=== PATIENT | female | born 1975 | race African-American/Black ===

== ENCOUNTER 2016-08-28 15:33 | Observation (INO) | payer OTHER ==
[~2016-08-28] VITALS: Ht 157.5 cm; Wt 113.5 kg
[~2016-08-28 15:33] MED LIST: ALBU6.7H INH; ASPI1TAB7 PO; BUTA1CAP5 PO; FIORIC PO; FLEX10TA PO; FLUC150T PO; METR500T10 PO; MICO200V PV; OMPR20CCR PO; OSEL75 PO; PRAV80 PO; PROP10TA6 PO; SUMA50 PO; SUMA5SPR
[2016-08-28 15:35] VITALS: BP 174/97; PULSE 78; RESP 18; TEMP 97.9; O2SAT 99
--- NOTE | 2016-08-28 16:17 | PD ---
HPI Chief Complaint: Chest Pain Time Seen by Provider: 16:17 Travel History International Travel<30 days: No Contact w/Intl Traveler<30days: No Traveled to known affect area: No History of Present Illness HPI 41-year-old female with history of hypertension, remote TIA, CVA, multiple blood clots, "some heart condition," migraine headaches, GERD, presents to the emergency department for evaluation of chest pain. Patient states it has been intermittently occurring over the last 3 days with associated dizziness. She states it feels as though the is spinning when it occurs. She has been nauseous with one episode of vomiting today. No episodes of diaphoresis. She has been increasingly short of breath with activity. Her industrial recruiter Dr. king advised that she come to the emergency department. PFSH Past Medical History Asthma: Yes Cancer: No Cardiovascular Problems: Yes High Cholesterol: Yes Cerebrovascular Accident: Yes Diabetes: No Diminished Hearing: No Endocrine: No Genitourinary: No Headaches: Yes Hepatitis: No Hiatal Hernia: No Immune Disorder: No Musculoskeletal: Yes (BACK PROBLEMS) Neurologic: Yes (TIA 2012, STROKE 2009, TIA 2005 & 2009; MIGRAINE HEADACHES ) Psychiatric: No Reproductive: Yes ( SEVERE VAGINAL BLEEDING) Respiratory: Yes Immunizations Current: Yes Migraines: Yes Thyroid Disease: Yes (HISTORY OF ) ?: Not : 4 Para: 4 Miscarriage: 0 : 0 Tubal Ligation: Yes (X 2 - STATES SHE BECAME PREG AFTER THE 1ST TUBAL) Past Surgical History Abdominal Surgery: Yes (CHOLECYSTECTOMY) AICD: No Cardiac Surgery: No Ear Surgery: No Endocrine Surgery: No Eye Surgery: No Genitourinary Surgery: No Gynecologic Surgery: Yes (TUBAL LIGATION X 2 ) Hysterectomy: Yes Joint Replacement: No Oral Surgery: No Pacemaker: No Thoracic Surgery: Yes (BREAST BIOPSY - BENIGN) Other Surgery: Yes (LEFT BREAST BIOPSY) Social History Alcohol Use: No Tobacco Use: No Substance Use: No Allergies-Medications (Allergen,Severity, Reaction): Coded Allergies: Penicillin (Verified Allergy, Severe, COMA, 08/20/16) Reported Meds & Prescriptions Reported Meds & Active Scripts Active Proventil Hfa 6.7 GM Inh (Albuterol Sulfate) 90 Mcg/Act Aer 2 Puff INH Q4-6H PRN Tamiflu (Oseltamivir Phosphate) 75 Mg Cap 75 Mg PO BID Hioglokart-Jbqtmcobteknt-Pvwudbkg 50-300-40 Mg Cap 1 Cap PO Q4H PRN Do not exceed 6 capsules/day. Fluconazole 150 Mg Tab 150 Mg PO ONCE Pravastatin Sodium (Pravastatin Sod) 80 Mg Tab 1 Tab PO HS Prilosec 20 Mg Cap (Omeprazole) 20 Mg Capcr 20 Mg PO DAILY Metronidazole 500 Mg Tab 2,000 Mg PO ONCE Fioricet Tab (Acetaminophen/Butalbital/Caffeine) 1 Tab Tab 1 Tab PO Q4H PRN Propranolol (Propranolol HCl) 10 Mg Tab 10 Mg PO BID Sumatriptan 5 Mg/Act Spr 5 Mg NA DIRECTED 40 mg in 24 hours; 1 spray in each nostril x1, may repeat dose x1 after 2 hours Monistat 3 (Miconazole Nitrate) 200 Mg Supp 1 Supp PV HS Proventil Hfa (Albuterol Sulfate) 6.7 Gm Aero 2 Puff INH Q6 * SHAKE WELL BEFORE USE * Imitrex 50 Mg Tab (Sumatriptan Succinate) 50 Mg Tab 50 Mg PO ONCE take 1 tab po prn headache, if headache continues may repeat x 1. max 2tabs in 24hrs. Reported Aspirin 81 mg Tab (Aspirin) 81 Mg Tab 81 Mg PO DAILY Flexeril (Cyclobenzaprine HCl) 10 Mg Tab 10 Mg PO TID PRN Review of Systems Except as stated in HPI: all other systems reviewed are Neg Physical Exam Narrative GENERAL: Well-nourished female patient, ambulatory and in no acute distress SKIN: Warm and dry. HEAD: Atraumatic. Normocephalic. EYES: Pupils equal and round. No scleral icterus. No injection or drainage. ENT: No nasal bleeding or discharge. Mucous membranes pink and moist. NECK: Trachea midline. No JVD. CARDIOVASCULAR: Regular rate and rhythm. No murmur appreciated. RESPIRATORY: No accessory muscle use. diminished, likely due to girth. Breath sounds equal bilaterally. GASTROINTESTINAL: Abdomen soft, non-tender, nondistended. Hepatic and splenic margins not palpable. MUSCULOSKELETAL: No obvious deformities. No clubbing. No cyanosis. No edema. NEUROLOGICAL: Awake and alert. No obvious cranial nerve deficits. Motor grossly within normal limits. Normal speech. PSYCHIATRIC: Appropriate mood and affect; insight and judgment normal. Data Data Last Documented VS Vital Signs Date Time Temp Pulse Resp B/P Pulse Ox O2 Delivery O2 Flow Rate FiO2 08/28/16 15:35 97.9 78 18 174/97 99 Room Air Orders Electrocardiogram (08/28/16 16:02) Complete Blood Count With Diff (08/28/16 16:02) Basic Metabolic Panel (Bmp) (08/28/16 16:02) Ckmb (Isoenzyme) Profile (08/28/16 16:02) Troponin I (08/28/16 16:02) Chest, Single Ap (08/28/16 16:02) Iv Access Insert/Monitor (08/28/16 16:02) Ecg Monitoring (08/28/16 16:02) Oxygen Administration (08/28/16 16:02) Oximetry (08/28/16 16:02) D-Dimer (08/28/16 16:16) B-Type Natriuretic Peptide (08/28/16 16:16) Coag Profile (08/28/16 16:17) Urinalysis - C+S If Indicated (08/28/16 16:38) CKMB (08/28/16 16:30) CKMB% (08/28/16 16:30) Labs Laboratory Tests Test 08/28/16 08/28/16 16:30 16:40 White Blood Count 7.2 TH/MM3 Red Blood Count 4.75 MIL/MM3 Hemoglobin 13.3 GM/DL Hematocrit 39.0 % Mean Corpuscular Volume 82.0 FL Mean Corpuscular Hemoglobin 27.9 PG Mean Corpuscular Hemoglobin 34.0 % Concent Red Cell Distribution Width 14.4 % Platelet Count 289 TH/MM3 Mean Platelet Volume 7.7 FL Neutrophils (%) (Auto) 49.7 % Lymphocytes (%) (Auto) 37.0 % Monocytes (%) (Auto) 8.2 % Eosinophils (%) (Auto) 4.3 % Basophils (%) (Auto) 0.8 % Neutrophils # (Auto) 3.6 TH/MM3 Lymphocytes # (Auto) 2.7 TH/MM3 Monocytes # (Auto) 0.6 TH/MM3 Eosinophils # (Auto) 0.3 TH/MM3 Basophils # (Auto) 0.1 TH/MM3 CBC Comment DIFF FINAL Differential Comment Prothrombin Time 9.8 SEC Prothromb Time International 0.9 RATIO Ratio Activated Partial 24.2 SEC Thromboplast Time D-Dimer Quantitative (PE/DVT) 0.20 MG/L FEU Sodium Level 139 MEQ/L Potassium Level 3.6 MEQ/L Chloride Level 104 MEQ/L Carbon Dioxide Level 25.2 MEQ/L Anion Gap 10 MEQ/L Blood Urea Nitrogen 12 MG/DL Creatinine 0.88 MG/DL Estimat Glomerular Filtration 87 ML/MIN Rate Random Glucose 115 MG/DL Calcium Level 8.6 MG/DL Total Creatine Kinase 148 U/L Creatine Kinase MB LESS THAN 0.5 NG/ML Troponin I LESS THAN 0.02 NG/ML B-Type Natriuretic Peptide 33 PG/ML Urine Color YELLOW Urine Turbidity HAZY Urine pH 6.5 Urine Specific [place] 1.019 Urine Protein TRACE mg/dL Urine Glucose (UA) NEG mg/dL Urine Ketones NEG mg/dL Urine Occult Blood SMALL Urine Nitrite NEG Urine Bilirubin NEG Urine Urobilinogen LESS THAN 2.0 MG/DL Urine Leukocyte Esterase LARGE Urine RBC 17 /hpf Urine WBC 4 /hpf Urine Squamous Epithelial 13 /hpf Cells Urine Bacteria RARE /hpf Urine Hyaline Casts 4 /lpf Urine Mucus FEW /lpf Microscopic Urinalysis Comment CULT NOT INDICATED MDM Medical Decision Making Medical Screen Exam Complete: Yes Emergency Medical Condition: Yes Medical Record Reviewed: Yes Differential Diagnosis ACS versus chest wall pain versus pleuritic pain versus PE Narrative Course 41 year-old female presents to the [facility] for evaluation of chest pain. Workup was initiated in triage. Once a medical bed becomes available, patient will be transferred and care assumed by the provider. Condition: Stable Lizette Priest Aug 28, 2016 16:17
--- NOTE | 2016-08-28 16:26 | RADRPT ---
EXAM DATE/TIME: 08/28/2016 16:04 [place] COMPARISON: No previous studies available for comparison. INDICATIONS : Dizziness and short of breath for 3 days. MEDICAL HISTORY : None. SURGICAL HISTORY : None. ENCOUNTER: Initial ACUITY: 3 days PAIN SCORE: 0/10 LOCATION: Bilateral chest FINDINGS: A single view of the chest demonstrates the lungs to be symmetrically aerated without evidence of mas s, infiltrate or effusion. The cardiomediastinal contours are unremarkable. Osseous structures are intact. CONCLUSION: 1. No acute cardiopulmonary findings identified. Craig Snell MD on August 28, 2016 at 16:24 Board Certified Radiologist. This report was verified electronically.
[2016-08-28 16:54] LABS: AUTOMATED NEUTROPHIL # 3.6 TH/MM3 (1.8-7.7); BASOPHIL # 0.1 TH/MM3 (0-0.2); BASOPHIL % 0.8 % (0.0-2.0); EOSINOPHIL # 0.3 TH/MM3 (0-0.4); EOSINOPHIL % 4.3 % (0.0-4.0); HEMO FLAGS DIFF FINAL; LYMPHOCYTE # 2.7 TH/MM3 (1.0-4.8); MEAN CORPUSCULAR HEMOGLOBIN 27.9 PG (27.0-34.0); MONO % 8.2 % (0.0-8.0); NEUT % 49.7 % (16.0-70.0); PLATELET COUNT 289 TH/MM3 (150-450); RED BLOOD COUNT 4.75 MIL/MM3 (4.00-5.30); RED CELL DISTRIBUTION WIDTH 14.4 % (11.6-17.2); WHITE BLOOD COUNT 7.2 TH/MM3 (4.0-11.0)
[2016-08-28 17:04] LABS: BACTERIA, URINE RARE /hpf; BLOOD, URINE SMALL (NEG); COMMENT (UR) CULT NOT INDICATED; CULTURE IF INDICATED CULT NOT INDICATED; GLUCOSE,URINE NEG (NEG); HYALINE CAST, URINE 4 /lpf (RARE); KETONE, URINE NEG (NEG); MUCUS URINE FEW /lpf (OCC); NITRITE,URINE NEG (NEG); PH, URINE 6.5 (5.0-8.5); SQUAMOUS EPITHELIAL CELL URINE 13 /hpf (0-5); URINE COLOR YELLOW (YELLW/STRAW)
[2016-08-28 17:08] LABS: APTT (PATIENT) 24.2 SEC (24.3-30.1); INTERNATIONAL NORMALIZED RATIO 0.9 RATIO; PROTHROMBIN TIME - PATIENT 9.8 SEC (9.8-11.6)
[2016-08-28 17:21] LABS: CREATINE KINASE 148 U/L (26-192)
[2016-08-28 17:28] LABS: ANION GAP 10 MEQ/L (5-15); BICARBONATE 25.2 MEQ/L (21.0-32.0); BLOOD UREA NITROGEN 12 MG/DL (7-18); CHLORIDE 104 MEQ/L (98-107); GLOMERULAR FILTRATION RATE 87 ML/MIN (>89); POTASSIUM 3.6 MEQ/L (3.5-5.1); SODIUM (NA) 139 MEQ/L (136-145)
[2016-08-28 17:45] LABS: CKMB LESS THAN 0.5 NG/ML (0.5-3.6)
[2016-08-28] MEDS ORDERED: ACETAMINOPHEN 500 MG CPLT PO PRN ×2 (19:00→20:00)
[2016-08-28] MEDS: NITROGLYCERIN 0.4 MG SL 25 TABS/BTL SL SCH ×3 (19:00→19:10)
--- NOTE | 2016-08-28 19:02 | PD ---
Physical Exam Time Seen by Provider: 19:02 Narrative 41-year-old female with history of remote TIA, asthma, hyperlipidemia, GERD presents to the emergency department for evaluation of chest pain. The patient states that she has had anterior chest pressure for 3 days. States that she has had intermittent pain for the past 2 days. States that since this morning the pain has been constant. The pain is aggravated with exertion. Alleviated with rest. States that she does have some associated shortness of breath. States that she has had 3 separate episodes of dizziness with emesis and chest pain over the past 3 days. Denies a history of MT but states that "I almost had one in the past." States that she had a cardiac catheterization [address] De La O at [facility], did not have any stents placed. States her last stress test was 2 years ago. Denies any fever, chills, cough or cold symptoms, abdominal pain. She has taken aspirin today already. PCP is Dr. Messina of the family practice service. No other complaints. GENERAL: Well-nourished and well-developed pleasant female patient in no acute distress. SKIN: Warm and dry. HEAD: Normocephalic and atraumatic. EYES: No injection, drainage, or hyphema noted. PERRLA. EOMI. ENT: No nasal drainage noted. Oropharynx is clear. NECK: Supple and the trachea is midline. CARDIOVASCULAR: Regular rate and rhythm. RESPIRATORY: Breath sounds are equal bilaterally with no accessory muscle use, wheezing, rhonchi, or crackles. GASTROINTESTINAL: Abdomen is soft, non-tender, and nondistended. MUSCULOSKELETAL: No obvious deformities, swelling, cyanosis, or ecchymosis is present throughout the upper and lower extremities. Patient has full range of motion without any signs of neurovascular compromise. NEUROLOGICAL: Awake, alert, and oriented. Normal speech and gait. Cranial nerves are grossly intact. Data Data Last Documented VS Vital Signs Date Time Temp Pulse Resp B/P Pulse Ox O2 Delivery O2 Flow Rate FiO2 08/28/16 19:28 85 18 114/67 97 Room Air 08/28/16 15:35 97.9 Orders Electrocardiogram (08/28/16 16:02) Complete Blood Count With Diff (08/28/16 16:02) Basic Metabolic Panel (Bmp) (08/28/16 16:02) Ckmb (Isoenzyme) Profile (08/28/16 16:02) Troponin I (08/28/16 16:02) Chest, Single Ap (08/28/16 16:02) Iv Access Insert/Monitor (08/28/16 16:02) Ecg Monitoring (08/28/16 16:02) Oxygen Administration (08/28/16 16:02) Oximetry (08/28/16 16:02) D-Dimer (08/28/16 16:16) B-Type Natriuretic Peptide (08/28/16 16:16) Coag Profile (08/28/16 16:17) Urinalysis - C+S If Indicated (08/28/16 16:38) CKMB (08/28/16 16:30) CKMB% (08/28/16 16:30) Nitroglycerin Sl (Nitrostat Sl) (08/28/16 19:00) Acetaminophen (Tylenol) (08/28/16 19:00) Labs Laboratory Tests Test 08/28/16 08/28/16 16:30 16:40 White Blood Count 7.2 TH/MM3 Red Blood Count 4.75 MIL/MM3 Hemoglobin 13.3 GM/DL Hematocrit 39.0 % Mean Corpuscular Volume 82.0 FL Mean Corpuscular Hemoglobin 27.9 PG Mean Corpuscular Hemoglobin 34.0 % Concent Red Cell Distribution Width 14.4 % Platelet Count 289 TH/MM3 Mean Platelet Volume 7.7 FL Neutrophils (%) (Auto) 49.7 % Lymphocytes (%) (Auto) 37.0 % Monocytes (%) (Auto) 8.2 % Eosinophils (%) (Auto) 4.3 % Basophils (%) (Auto) 0.8 % Neutrophils # (Auto) 3.6 TH/MM3 Lymphocytes # (Auto) 2.7 TH/MM3 Monocytes # (Auto) 0.6 TH/MM3 Eosinophils # (Auto) 0.3 TH/MM3 Basophils # (Auto) 0.1 TH/MM3 CBC Comment DIFF FINAL Differential Comment Prothrombin Time 9.8 SEC Prothromb Time International 0.9 RATIO Ratio Activated Partial 24.2 SEC Thromboplast Time D-Dimer Quantitative (PE/DVT) 0.20 MG/L FEU Sodium Level 139 MEQ/L Potassium Level 3.6 MEQ/L Chloride Level 104 MEQ/L Carbon Dioxide Level 25.2 MEQ/L Anion Gap 10 MEQ/L Blood Urea Nitrogen 12 MG/DL Creatinine 0.88 MG/DL Estimat Glomerular Filtration 87 ML/MIN Rate Random Glucose 115 MG/DL Calcium Level 8.6 MG/DL Total Creatine Kinase 148 U/L Creatine Kinase MB LESS THAN 0.5 NG/ML Troponin I LESS THAN 0.02 NG/ML B-Type Natriuretic Peptide 33 PG/ML Urine Color YELLOW Urine Turbidity HAZY Urine pH 6.5 Urine Specific [place] 1.019 Urine Protein TRACE mg/dL Urine Glucose (UA) NEG mg/dL Urine Ketones NEG mg/dL Urine Occult Blood SMALL Urine Nitrite NEG Urine Bilirubin NEG Urine Urobilinogen LESS THAN 2.0 MG/DL Urine Leukocyte Esterase LARGE Urine RBC 17 /hpf Urine WBC 4 /hpf Urine Squamous Epithelial 13 /hpf Cells Urine Bacteria RARE /hpf Urine Hyaline Casts 4 /lpf Urine Mucus FEW /lpf Microscopic Urinalysis Comment CULT NOT INDICATED MDM Supervised Visit with SUDHIR: No Differential Diagnosis ACS versus pleurisy versus angina versus PE Narrative Course 41-year-old female presents to the emergency department for evaluation of chest pressure for 3 days. Patient is afebrile, vital signs are stable. She was seen by provider in triage and initiated workup. EKG shows normal sinus rhythm with no acute ST elevations or depressions. CBC is unremarkable. BMP is unremarkable. Troponin is less than 0.02. CK-MB is less than 0.5. Coags are unremarkable. D-dimer is negative. Urinalysis shows small occult blood, large leukocyte esterase, 17 red blood cells, rare bacteria, few mucus. Not indicative of urinary tract infection. Chest x-ray is negative for any acute abnormalities. Patient has been given aspirin and nitroglycerin. Her vitals have remained stable. She appears well overall. Patient will be given a chest pain center for repeat cardiac enzymes, EKGs and possible stress test. Patient is agreeable with this plan. Diagnosis Primary Impression: Chest pain Qualified Code: R07.9 - Chest pain, unspecified type Admitting Information Admitting Physician Requests: Observation Condition: Stable Marie Babcock Aug 28, 2016 19:02
[2016-08-28 19:28] VITALS: BP 114/67; PULSE 85; RESP 18; O2SAT 97
[2016-08-28 20:00] VITALS: BP 118/72; PULSE 81; RESP 20; O2SAT 97
[2016-08-28] MEDS ORDERED: SODIUM CHLORIDE 0.9% FLUSH 5 ML FLUSH IVF PRN (20:00)
[2016-08-28] MEDS ORDERED: ONDANSETRON HCL 4 MG/2 ML VIAL IV PRN (20:00)
[2016-08-28] MEDS ORDERED: PRAV80TA2 PO (20:04)
[2016-08-28] MEDS ORDERED: ASPI325T PO (20:04)
[2016-08-28] MEDS ORDERED: OMEP20TA PO (20:04)
[2016-08-28] MEDS: SODIUM CHLORIDE 0.9% FLUSH 5 ML FLUSH IVF SCH (21:16)
[2016-08-28 22:50] VITALS: BP 138/89; PULSE 82; RESP 20; TEMP 98; O2SAT 95
[2016-08-28 23:00] LABS: CREATINE KINASE 140 U/L (26-192)
[2016-08-28 23:28] LABS: CREATINE KINASE 120 U/L (26-192)
[2016-08-28 23:29] LABS: CKMB LESS THAN 0.5 NG/ML (0.5-3.6)
[2016-08-28 23:40] LABS: CKMB 0.6 NG/ML (0.5-3.6)
[2016-08-29 00:10] VITALS: PULSE 75
[2016-08-29 04:04] VITALS: PULSE 68
[2016-08-29 04:28] VITALS: BP 130/75; PULSE 63; RESP 20; TEMP 97.9; O2SAT 97
[2016-08-29 06:58] VITALS: BP 135/89; PULSE 77; RESP 18; TEMP 97.4; O2SAT 96
[2016-08-29] MEDS: SODIUM CHLORIDE 0.9% FLUSH 5 ML FLUSH IVF SCH (08:17)
--- NOTE | 2016-08-29 10:50 | HHI.HP ---
HPI Primary Care Physician Nicci Messina MD Chief Complaint Chest pressure History of Present Illness 41-year-old with known hyperlipidemia and TIA presents chest pressure. Location substernal chest area. Described as "someone sitting on me." Onset was Friday. Friday's episode she was resting and initially felt weak, dizzy, nausea, short of breath, then developed chest pressure. Episode lasted 5 minutes. Later that day with walking she had another "episode, again lasted 5 minutes." Since Friday she has had intermittent chest pressure. No radiation of chest pain. No known precipitating factors or relieving factors. While at work yesterday developed chest pressure that did not go away, decided to come to the ER for further evaluation. Duration of chest pressure has been constant since yesterday. Breathing and certain movements makes pressure worse. Changes in intensity however constant throughout evening and this a.m. currently chest pressure 3/10. Also complains of headache. Review of Systems General: Recently discharged 2 weeks ago from [facility]. Was diagnosed with a TIA. States multiple test completed, a neurologist recommend Plavix. Neurologist has sent a letter to her retail associate manager bilingual to discuss adding Plavix. She is waiting for further instruction. No fatigue,weakness, fever, chills, recent travel, or change in appetite HEENT: Chronic migraine HAs, currently has headache. No vision changes, no nasal congestion or drainage, no dysphasia CV: As stated above. No palpitations, intermittent leg pain. Intermittent dizziness as stated above. RESP: Reports intermittent shortness of breath, initially thought to be exertional however also short of breath at rest. No recent URI, cough, wheeze, hemoptysis. No known asthma GI: No nausea or vomiting, bowel changes, diarrhea, constipation, pain, distention, melena, blood in the stool. No change in appetite, no unintentional weight gain or weight loss : No dysuria, urgency, frequency, hematuria. Last week treated with antibiotics for trichomonas and a yeast infection. Reports lower abdominal discomfort with urination. EXT: No lower leg edema, no paraesthesias MS: No discomfort or change in ROM NEURO: No change in memory, difficulty with balance, LOC, motor/sensory deficits, no syncopal episodes PSYCH: No anxiety, depression. SKIN: No rashes, no concerning lesions Past Family Social History Allergies: Coded Allergies: Penicillin (Verified Allergy, Severe, COMA, 08/28/16) Past Medical History Migraines, hyperlipidemia, GERD, TIA, "blood clots in the past." Past Surgical History Hysterectomy Reported Medications Reported Meds & Active Scripts Active Proventil Hfa 6.7 GM Inh (Albuterol Sulfate) 90 Mcg/Act Aer 2 Puff INH Q4-6H PRN Zgvwxjkwjv-Fcnsavjdouerr-Bepzmfyx 50-300-40 Mg Cap 1 Cap PO Q4H PRN Do not exceed 6 capsules/day. Omeprazole 20 Mg Tab 20 Mg PO DAILY Pravastatin 80 Mg Tab 80 Mg PO DAILY Aspirin 325 Mg Tab 325 Mg PO DAILY Flexeril 10 mg by mouth 3 times a day when necessary Active Ordered Medications Current Medications Medications (Trade) Dose Ordered Sig/Eulalia Route Start Time Stop Time Status Last Admin (Tylenol) 1,000 mg ONCE PRN PO 08/28/16 19:00 08/29/16 06:36 (Tylenol) 500 mg Q4H PRN PO 08/28/16 20:00 (Zofran Inj) 4 mg Q6H PRN IV 08/28/16 20:00 Family History Noncontributory for early onset cardiovascular disease Social History She is a lifelong nonsmoker. No alcohol or illegal drug use. Has 4 children and one grandchild. No known hypertension or diabetes. Recently told by a neurologist to take cholesterol medication. Past cardiac testing No recent stress testing. 2013normal cardiac catheterization (per patient's retail associate manager bilingual, records not available) Physical Exam Vital Signs Vital Signs Date Time Temp Pulse Resp B/P Pulse Ox O2 Delivery O2 Flow Rate FiO2 08/29/16 07:37 18 08/29/16 06:58 97.4 77 18 135/89 96 08/29/16 04:28 97.9 63 20 130/75 97 08/29/16 04:04 68 08/29/16 00:10 75 08/28/16 22:50 98.0 82 20 138/89 95 08/28/16 20:00 81 20 118/72 97 Room Air 08/28/16 19:53 80 20 97 Room Air 08/28/16 19:28 85 18 114/67 97 Room Air 08/28/16 15:35 97.9 78 18 174/97 99 Room Air Physical Exam GENERAL: Alert WN, WD, NAD, pleasant obese, female HEAD: NC, AT EYES: Sclera clear, conjunctiva without injection, pupils equal and round ENT: Mucous membranes pink and moist NECK: Supple, no masses, trachea midline CV: RRR, without murmur, rub, gallop, no JVD, S1-S2 no S3-S4. No carotid bruits. RESP: Clear lungs throughout bilateral, no crackles, wheeze, rhonchi, symmetrical chest rise, nonlabored, able to speak in full sentences ABD: Soft, NT, ND, obese, no masses, positive bowel tones BACK: No CVAT, no scoliosis EXT: Pulses +24, no dependent edema MS: Normal tone 4 extremities, nontender, no obvious deformities, full range of motion NEURO: CN II through CN XII grossly intact, motor strength 5/5, gait WNL PSYCH: A+O 3, pleasant affect, appropriate speech, appropriate mood and affect , insight and judgment SKIN: Normal turgor, normal texture, no lesions, no rashes, brisk cap refill Laboratory Laboratory Tests Test 08/28/16 08/28/16 08/28/16 08/28/16 16:30 16:40 20:40 22:45 White Blood Count 7.2 Red Blood Count 4.75 Hemoglobin 13.3 Hematocrit 39.0 Mean Corpuscular Volume 82.0 Mean Corpuscular Hemoglobin 27.9 Mean Corpuscular Hemoglobin 34.0 Concent Red Cell Distribution Width 14.4 Platelet Count 289 Mean Platelet Volume 7.7 Neutrophils (%) (Auto) 49.7 Lymphocytes (%) (Auto) 37.0 Monocytes (%) (Auto) 8.2 Eosinophils (%) (Auto) 4.3 Basophils (%) (Auto) 0.8 Neutrophils # (Auto) 3.6 Lymphocytes # (Auto) 2.7 Monocytes # (Auto) 0.6 Eosinophils # (Auto) 0.3 Basophils # (Auto) 0.1 CBC Comment DIFF FINAL Differential Comment Prothrombin Time 9.8 Prothromb Time International 0.9 Ratio Activated Partial 24.2 Thromboplast Time D-Dimer Quantitative (PE/DVT) 0.20 Sodium Level 139 Potassium Level 3.6 Chloride Level 104 Carbon Dioxide Level 25.2 Anion Gap 10 Blood Urea Nitrogen 12 Creatinine 0.88 Estimat Glomerular Filtration 87 Rate Random Glucose 115 Calcium Level 8.6 Total Creatine Kinase 148 140 120 Creatine Kinase MB LESS THAN 0.5 LESS THAN 0.5 0.6 Troponin I LESS THAN 0.02 LESS THAN 0.02 LESS THAN 0.02 B-Type Natriuretic Peptide 33 Urine Color YELLOW Urine Turbidity HAZY Urine pH 6.5 Urine Specific [place] 1.019 Urine Protein TRACE Urine Glucose (UA) NEG Urine Ketones NEG Urine Occult Blood SMALL Urine Nitrite NEG Urine Bilirubin NEG Urine Urobilinogen LESS THAN 2.0 Urine Leukocyte Esterase LARGE Urine RBC 17 Urine WBC 4 Urine Squamous Epithelial 13 Cells Urine Bacteria RARE Urine Hyaline Casts 4 Urine Mucus FEW Microscopic Urinalysis Comment CULT NOT INDICATED Result Diagram: 08/28/16 1630 08/28/16 1630 Imaging Last Impressions Chest X-Ray 08/28/16 1602 Signed Impressions: Service Date/Time: Friday, August 28, 2016 16:04 - CONCLUSION: 1. No acute cardiopulmonary findings identified. Craig Snell MD Course EKGs 3 EKGs showed normal sinus rhythm, nonspecific T-wave abnormality Assessment and Plan Assessment and Plan #1 Chest painadmitted to chest pain center. Ruled out with 3 sets of EKGs, cardiac enzymes, d-dimer normal, and monitored throughout evening. Will be seen and evaluated by Dr. Daniela Matias. Call out to patient's retail associate manager bilingual , Dr. Lawton, to discuss further recommendations. #2 Hyperlipidemiacontinue statin. #3 GERDcontinue omeprazole. #4 MigraineTylenol when necessary. Hold Fiorcet at this time, pending possible chemical stress test. Recently thoroughly worked up at [facility] with CT brain and MRI. No further testing. Follow with neurologist. #5 Musculoskeletal painmay use [id number] ibuprofen or Tylenol as needed. Heating pad to chest wall. Discussed Condition With Return call from Dr. Lawton received. Dr. Lawton states patient had normal heart catheterization in 2012. Since she has been ruled out with EKGs and cardiac enzymes, [place] okay with discharge and recommends follow-up in his office. Valery Barker Aug 29, 2016 10:50
[2016-08-29 11:18] VITALS: PULSE 71
[2016-08-29 11:24] VITALS: BP 129/82; PULSE 68; RESP 20; TEMP 98.3; O2SAT 99
[2016-08-29] MEDS ORDERED: PRAVASTATIN SOD 80 MG TAB PO SCH (11:30)
[2016-08-29] MEDS ORDERED: ASPIRIN 325 MG TAB PO SCH (11:30)
[2016-08-29] MEDS ORDERED: PANTOPRAZOLE SOD 20 MG DELAYED RELEASE TAB PO SCH (11:30)
--- NOTE | 2016-08-29 11:35 | HHI.DCPOC ---
Discharge Care Plan Diagnosis: (1) Atypical chest pain Goals to Promote Your Health * To prevent worsening of your condition and complications * To maintain your health at the optimal level Directions to Meet Your Goals Take your medications as prescribed Follow your dietary instruction Follow activity as directed Keep your appointments as scheduled Take your immunizations and boosters as scheduled If your symptoms worsen call your PCP, if no PCP go to Urgent Care Center or Emergency Room Smoking is Dangerous to Your Health. Avoid second hand smoke Call the 24-hour hour crisis hotline for domestic abuse at Valery Barker Aug 29, 2016 11:35
--- NOTE | 2016-08-29 21:29 | EKG ---
Date Performed: 08/28/2016 Time Performed: 22:54:21 PTAGE: 41 years EKG: Sinus rhythm NONSPECIFIC T-WAVE ABNORMALITY BORDERLINE ECG Since PREVIOUS TRACING , no significant change noted PREVIOUS TRACIN08/28/2016 20.36 DOCTOR: Daniela Matias Interpretating Date/Time 08/29/2016 21:28:34
--- NOTE | 2016-08-29 21:31 | EKG ---
Date Performed: 08/28/2016 Time Performed: 20:36:31 PTAGE: 41 years EKG: Sinus rhythm MINIMAL VOLTAGE CRITERIA FOR LVH, CONSIDER NORMAL VARIANT NONSPECIFIC T-WAVE ABNORMALITY BORDERLINE ECG Since PREVIOUS TRACING , no significant change noted PREVIOUS TRACIN08/28/2016 16.10 DOCTOR: Daniela Matias Interpretating Date/Time 08/29/2016 21:29:56
--- NOTE | 2016-08-29 21:32 | EKG ---
Date Performed: 08/28/2016 Time Performed: 16:10:42 PTAGE: 41 years EKG: Sinus rhythm MINIMAL VOLTAGE CRITERIA FOR LVH, CONSIDER NORMAL VARIANT NONSPECIFIC T-WAVE ABNORMALITY BORDERLINE ECG Since PREVIOUS TRACING , no significant change noted PREVIOUS TRACIN12/09/2012 12.44 DOCTOR: Daniela Matias Interpretating Date/Time 08/29/2016 21:31:03
[2016-11-27] MEDS ORDERED: METR-1 PO (10:27)
[2016-11-27] MEDS ORDERED: FLUC150T PO (10:27)
[2016-11-27] MEDS ORDERED: IBUP800T23 PO (10:28)
== END 2016-08-29 14:17 | disposition home or self-care (01) ==
LOC: NEPC 15:33 → NEDA 19:50 → NEPGCP 21:58
PROVIDERS: ADMIT Internal Medicine Cardiovascular Disease; ATTEND Internal Medicine Cardiovascular Disease
DX: R07.9 Chest pain, unspecified (principal); Z86.73 Personal history of transient ischemic attack (TIA), and cerebral infarction without residual deficits; K21.9 Gastro-esophageal reflux disease without esophagitis; I10 Essential (primary) hypertension; R11.2 Nausea with vomiting, unspecified; E78.00 Pure hypercholesterolemia, unspecified; J45.909 Unspecified asthma, uncomplicated; Z79.899 Other long term (current) drug therapy; G45.9 Transient cerebral ischemic attack, unspecified; E78.5 Hyperlipidemia, unspecified; G43.909 Migraine, unspecified, not intractable, without status migrainosus; M79.1 Myalgia
CPT/HCPCS: 71010; 80048; 81001; 82550; 82552; 83880; 84484; 85025; 85379; 85610; 85730; 93005; 99285; G0378